=== PATIENT | male | born 1980 | race Two or more races ===

== ENCOUNTER 2020-01-19 22:45 | Emergency (ER) | payer SELFPAY ==
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
[2020-01-20] MEDS ORDERED: Ibuprofen 800 MG Tab PO ONE (00:19)
[2020-01-20] MEDS ORDERED: Acetaminophen/HYDROcodone 325-5 MG Tab PO ONE (00:19)
== END 2020-01-20 01:09 | disposition home or self-care (01) ==
LOC: MW.ED 22:45
DX: S82.831A Other fracture of upper and lower end of right fibula, initial encounter for closed fracture (principal); S00.83XA Contusion of other part of head, initial encounter; Y04.8XXA Assault by other bodily force, initial encounter
CPT/HCPCS: 29515; 70450; 70486; 72125; 73610; 99285; A9270; 99283